=== PATIENT | male | born 1955 | race Caucasian/White ===

== ENCOUNTER 2017-01-25 07:52 | Emergency (ER) | payer OTHER ==
[~2017-01-25] VITALS: Ht 185.4 cm; Wt 122.7 kg
[~2017-01-25 07:52] MED LIST: ALBU18HF INH; ASPI325T32 PO; BECL8.7A5 INHALATION; BUTA1CAP16 PO; EPIN0.3P2 IJ; FEXO-15 PO; LEVO75TA4 PO; LIP40 PO; LISI1TAB7 PO; MONT10TA23 PO; NAPR500T PO; OLP.1OP5 OD; SUMA20SP2 NS; TOP100 PO
[2017-01-25 07:55] VITALS: BP 140/91; PULSE 55; RESP 16; O2SAT 96
--- NOTE | 2017-01-25 08:06 | ED.REPORT ---
HPI-General Illness Date of Service Jan 25, 2017 ED Provider: Dr. Ward Pt is a 61 year old male with a history of HTN, asthma, thyroid nodule, and chronic cervical myelopathy who presents to the ED complaining of headache onset yesterday at 1630. Pt c/o SOB this morning, diaphoresis this morning, bilaterally tingling in fingertips (secondary to cervical myelopathy), epigastric pain, visual changes, disorientation, nausea, and dizziness onset yesterday at 16:30. He denies chest pain, skin rashes, fever, any other abdominal pains, lower extremity edema, dysuria, or any other symptoms. The pt took Imitrex and hydrocodone (1x) with mild relief yesterday. He took Toradol as a shot at 05:30 this morning. His symptoms are similar to his previous migraines but he notes it has been years since he has had one this severe. Nursing Notes Stated Complaint: NAUSEA,SOB Chief Complaint: General Complaint Nursing Notes Reviewed: Yes Allergies: Coded Allergies: Penicillins (Verified Allergy, Severe, 07/09/15) itchy- no rash or hives ciprofloxacin (Verified Allergy, Intermediate, unk, 07/09/15) Sulfa (Sulfonamide Antibiotics) (Verified Allergy, Unknown, 07/09/15) Uncoded Allergies: MSG, Sodium nitrate, [place] (Adverse Reaction, Unknown, migraine headache, 03/30/10) Scheduled Aspirin (Aspirin) 325 Mg Tablet 325 MG PO DAILY Atorvastatin (Lipitor) 40 Mg Tablet 40 MG PO DAILY Beclomethasone Dipropionate (Qvar) 8.7 Gm Aer.w.adap 2 PUFF INHALATION BID Fexofenadine (Tami Allergy) 60 Mg Tablet 60 MG PO BID Levothyroxine (Levothyroxine) 75 Mcg Tablet 75 MCG PO DAILY Lisinopril / HCTZ 10-12.5 mg (Lisinopril / HCTZ 10-12.5 mg) 1 Each Tablet 1 EACH PO DAILY Metoprolol Succinate ER (Toprol XL) 100 Mg Tablet 100 MG PO DAILY Montelukast (Montelukast) 10 Mg Tablet 10 MG PO HS Olopatadine (Patanol) 5 Ml Soln 5 ML OD BID Scheduled PRN Albuterol Sulfate (Ventolin HFA Inhaler) 200 Puff/18 Gm Inhaler 2 PUFF INH Q4 PRN PRN For Wheezing Butalbital/Aspirin/Caff 50-325-40 mg (Fiorinal 50-325-40 mg) 1 Each Capsule 1-2 CAPSULE PO Q4H PRN PRN migraine NTE 6 capsules daily Epinephrine (Epipen 2-Alexis) 0.3 Mg/0.3 Ml Auto.injct 0.3 MG IJ PRN For Anaphyllaxis Naproxen (Naprosyn) 500 Mg Tablet 500 MG PO BIDWM PRN PRN For Pain Sumatriptan (Sumatriptan) 20 Mg [place] 20 MG NS PRN migraine NTE 40mg/daily General Time Seen by MD: 08:05 Chief Complaint Headache Hx Obtained From: Patient Arrived By: Walk-in Sudden in Onset?: No Onset Occurred: Yesterday Symptom Duration: Since onset Quality: Painful Severity: Current: Moderate Severity: Maximum: Moderate Recent Healthcare: Recent doctor visit Similar Sx Previous: Yes Past Medical History Past Medical History Heart valve insufficiency Thyroid nodle cervical mylopathy Cervical neck fusions c4-5, c5-6 Migraines Reports: Asthma, Hypertension, Denies: Diabetes mellitus Reports: Thyroid disease (isma) Past Surgical History Sinus surgery Knee arthroscopy Umbilical hernia Reports: Cataract surgery Reports: Back/neck surgery Smoking History Never Smoker Social History Alcohol Use: "Social" Drug Use: Denies drug use Ambulatory Status Independent Review of Systems + bilaterally tingling in fingertips + visual changes (non-specific) Full Review of Systems Constitutional: Denies: Fever Respiratory: Reports: Shortness of breath Cardiovascular: Denies: Chest pain GI: Reports: Abdominal pain (epigastric) Male: Denies Dysuria Skin: Reports Diaphoresis, Denies Rash, Denies Swelling Neurologic: Reports: Dizziness, Headache Complete sys rev & neg: except as marked. Physical Exam Vital Signs Vital Signs Date Time Temp Pulse Resp B/P Pulse Ox O2 Delivery O2 Flow Rate FiO2 01/25/17 10:07 57 12 109/60 98 Room Air 01/25/17 08:54 36.9 96 15 136/87 95 Room Air 01/25/17 07:55 35.9 55 16 140/91 96 Room Air Initial VS: Reviewed Head / Eyes: Atraumatic, Normocephalic Neck: Supple, Full range of motion Skin: Warm, Dry, No cyanosis Neurologic: Alert, Oriented, Nonfocal Psychiatric: Mood/affect normal, Behavior normal Respiratory / Chest: Atraumatic, Breath sounds NL, Breath sounds = bilat Cardiovascular: Heart rate NL, Regular rhythm Heart Sounds / Murmur: Positive: Systolic murmur present.. (III/, late) Abdomen: Atraumatic, Soft, No guarding, No rebound Tenderness/Guarding/Rebound: Positive: Tender LLQ..., Tender epigastric (Mild) Upper Extremities Upper Extremity / MS: Atraumatic, Full range of motion, Neurologic intact, Vascular intact Bilateral fingertips tingling secondary cervial stenosis Lower Extremity / Pelvis / MS: Atraumatic, Full range of motion, Neurologic intact, Vascular intact, No edema Interpretation & Diagnostics Lab Results Interpretation Result Diagram: 01/25/17 0825 01/25/17 0825 Test 01/25/17 08:25 White Blood Count 6.2th/mm3 (3.8-10.1) Red Blood Count 4.52mil/mm3 (4.40-5.80) Hemoglobin 14.8g/dL (13.8-17.2) Hematocrit 41.6% (41.0-50.0) Mean Corpuscular Volume 92.0fL (81-100) Mean Corpuscular Hemoglobin 32.7pg (27.0-35.0) Mean Corpuscular Hemoglobin Concent 35.6% (32.0-37.0) Red Cell Distribution Width 12.2% (12.3-15.4) Platelet Count 169bil/L (150-400) Neutrophils (%) (Auto) 63.4% (40-74) Lymphocytes (%) (Auto) 27.2% (14-46) Monocytes (%) (Auto) 7.8% (4-12) Eosinophils (%) (Auto) 1.1% (0-5) Basophils (%) (Auto) 0.3% (0-3) Sodium Level 137mEq/L (134-144) Potassium Level 3.7mEq/L (3.5-5.2) Chloride Level 99mEq/L (97-108) Carbon Dioxide Level 24mmol/L (18-29) Blood Urea Nitrogen 18mg/dL (8-27) Creatinine 0.87mg/dL (0.76-1.27) Estimat Glomerular Filtration Rate 95mL/min (>59) Glucose Level 150mg/dL (60-99) Calcium Level 9.3mg/dL (8.5-10.1) Magnesium Level 2.0mg/dL (1.6-2.6) Total Bilirubin 0.7mg/dL (0.0-1.2) Aspartate Amino Transf (AST/SGOT) 15U/L (0-50) Alanine Aminotransferase (ALT/SGPT) 20U/L (0-44) Alkaline Phosphatase 54U/L (25-160) Troponin T 0.010ug/L (0.0-0.011) Total Protein 6.8g/dL (6.4-8.4) Albumin 3.9g/dL (3.4-5.0) Hold Baptiste Top Tube Received (Received) ECG Interpretation ECG Interpretation: Sinus rhythm with a rate of 73. No ischemic Non-specific intraventricular conduction delay. Time: 08:41 Interpreted by: ED physician X-Ray Chest Interpretation Chest Xray Interpretation: IMPRESSION: Mildly reduced inspiratory volume. Dictated by: Salazar Nicole M.D. on 01/25/2017 at 9:02 View: Portable, 1 view Interpretation / Wet Read by: Interpret - Radiologist Re-Eval/Medical Decision Med Decision/Clinical Course 61-year-old man presents with migraine symptoms in addition diaphoresis dyspnea and some epigastric pain. Workup is negative for any cardiac etiology and treatment of migraine symptoms have resolved the additional complaints as well. Suggested he follow-up with his primary care provider for refill of his Fioricet and his symptoms recurred today, try another dose of Imitrex Source of Hx: Old records Time of Eval: 09:17 Patient Status: Condition improved Re-Evaluation/Progress Note: Rechecked patient. Discussed plan for discharge. Patient understands and agrees with plan. All questions addressed at this time. Counseled Regarding: Diagnosis, Lab results, Need for follow-up, When/why to return to ED Discharge & Departure Primary Impression: Migraine Migraine type: unspecified Disposition: Home Discharge Condition All VS Reviewed: Yes Condition: Stable Additional Instructions: Thank you for coming in today. Your labs and remainder of workup were very reassuring. There is no evidence of infection, heart attack, or pneumonia. Your symptoms improved with our routine migraine treatment and I am happy that you are feeling better. if your symptoms return today, I would try an additional dose of Imitrex. I hope you are able to go home and get some good sleep and wake up feeling refreshed Referrals: Everette Cook MD (PCP) Tejal Attestation Portions of this note were transcribed by Rakesh Valdivia and Odalis Melendez. I, Dr. Ward personally performed the history, physical exam and medical decision-making; I reviewed and confirmed the accuracy of the information in the transcribed note. Signed by: Rakesh Valdivia and Tejal Cardenas, 01/25/17 and 09:33 copies to: Everette Cook MD, Shawna L MD Jan 25, 2017 08:06 Odalis Ewing Jan 25, 2017 08:13 RAKESH VALDIVIA Jan 25, 2017 08:51
[2017-01-25] MEDS ORDERED: 0.9% Sodium Chloride 1,000 ML IV ONE (08:18)
[2017-01-25] MEDS ORDERED: Haloperidol 5 mg/mL Inj IVPUSH ONE (08:20)
[2017-01-25] MEDS ORDERED: Ondansetron 2 mg/mL 2 mL Inj IVPUSH ONE (08:20)
[2017-01-25 08:34] LABS: BASOPHILS % (AUTO) 0.3 % (0-3); EOSINOPHILS % (AUTO) 1.1 % (0-5); MONOCYTES % (AUTO) 7.8 % (4-12); Mean Corpuscular Hemoglobin 32.7 pg (27.0-35.0); NEUTROPHILS % (AUTO) 63.4 % (40-74); Platelet Count 169 bil/L (150-400)
[2017-01-25 08:54] VITALS: BP 136/87; PULSE 96; RESP 15; O2SAT 95
[2017-01-25 08:55] LABS: TROPONIN T 0.01 ug/L (0.0-0.011)
--- NOTE | 2017-01-25 09:04 | DRSVH ---
PROCEDURE: X-RAY CHEST ONE VIEW, PORTABLE ([id number]) INDICATIONS: chest pain, nausea TECHNIQUE: One view of the chest was acquired. COMPARISON: [facility], CR, XR CHEST 2VW, 07/25/2016, 8:33. FINDINGS: Surgical changes and devices: None. Lungs and pleura: No pleural effusions or pneumothorax. Lungs are clear. Mediastinum: Mediastinal contours appear normal. Heart size is normal. Bones and chest wall: No suspicious bony lesions. Overlying soft tissues appear unremarkable. IMPRESSION: Mildly reduced inspiratory volume. Dictated by: Salazar Nicole M.D. on 01/25/2017 at 9:02 Approved by: Salazar Nicole M.D. on 01/25/2017 at 9:02
[2017-01-25 10:07] VITALS: BP 109/60; PULSE 57; RESP 12; O2SAT 98
== END 2017-01-25 10:00 | disposition home or self-care (01) ==
LOC: SED 07:52
DX: G43.909 Migraine, unspecified, not intractable, without status migrainosus (principal); I10 Essential (primary) hypertension; Z79.82 Long term (current) use of aspirin; Z79.899 Other long term (current) drug therapy; Z88.0 Allergy status to penicillin; Z88.1 Allergy status to other antibiotic agents; Z88.2 Allergy status to sulfonamides
CPT/HCPCS: 36415; 71010; 80053; 83735; 84484; 85025; 93005; 96361; 96374; 96375; 99284; J1200; J1630; J2405; J7030

== ENCOUNTER 2017-02-06 18:24 | Emergency (ER) | payer OTHER ==
[~2017-02-06] VITALS: Ht 185.4 cm; Wt 118.2 kg
[2017-02-06 18:27] VITALS: BP 136/90; PULSE 79; RESP 17; O2SAT 96
--- NOTE | 2017-02-06 19:10 | ED.REPORT ---
HPI-Extremity Problem Lower Date of Service Feb 06, 2017 ED Provider: Aníbal Escobar MD Pt is a generally healthy 61 y/o male presenting to the ED c/o right knee pain onset 2 days ago. The patient was herding ducks and chickens 2 days ago and heard a pop in his right knee and felt some mild pain. Yesterday he began experiencing significant pain causing difficulty ambulating. Today, his pain has increased causing him trouble ambulating. Pain is exacerbated by extension of the leg. He believes the cause of his injury was a twisting movement of the knee. He denies numbness, weakness, or any other symptoms. He has no history of surgery in that knee. Nursing Notes Stated Complaint: RIGHT KNEE PAIN Chief Complaint: Extremity Trauma Nursing Notes Reviewed: Yes Allergies: Coded Allergies: Penicillins (Verified Allergy, Severe, 02/06/17) itchy- no rash or hives ciprofloxacin (Verified Allergy, Intermediate, unk, 02/06/17) Sulfa (Sulfonamide Antibiotics) (Verified Allergy, Unknown, 02/06/17) Uncoded Allergies: MSG, Sodium nitrate, [place] (Adverse Reaction, Unknown, migraine headache, 03/30/10) Scheduled Aspirin (Aspirin) 325 Mg Tablet 325 MG PO DAILY Atorvastatin (Lipitor) 40 Mg Tablet 40 MG PO DAILY Beclomethasone Dipropionate (Qvar) 8.7 Gm Aer.w.adap 2 PUFF INHALATION BID Fexofenadine (Tami Allergy) 60 Mg Tablet 60 MG PO BID Levothyroxine (Levothyroxine) 75 Mcg Tablet 75 MCG PO DAILY Lisinopril / HCTZ 10-12.5 mg (Lisinopril / HCTZ 10-12.5 mg) 1 Each Tablet 1 EACH PO DAILY Metoprolol Succinate ER (Toprol XL) 100 Mg Tablet 100 MG PO DAILY Montelukast (Montelukast) 10 Mg Tablet 10 MG PO HS Olopatadine (Patanol) 5 Ml Soln 5 ML OD BID Scheduled PRN Albuterol Sulfate (Ventolin HFA Inhaler) 200 Puff/18 Gm Inhaler 2 PUFF INH Q4 PRN PRN For Wheezing Butalbital/Aspirin/Caff 50-325-40 mg (Fiorinal 50-325-40 mg) 1 Each Capsule 1-2 CAPSULE PO Q4H PRN PRN migraine NTE 6 capsules daily Epinephrine (Epipen 2-Alexis) 0.3 Mg/0.3 Ml Auto.injct 0.3 MG IJ PRN For Anaphyllaxis Hydrocodone-Acetaminophen 5-325 mg (Hydrocodone-Acetaminophen 5-325 mg) 1 Each Tablet 1 TABLET PO Q4H PRN PRN For Pain Naproxen (Naprosyn) 500 Mg Tablet 500 MG PO BIDWM PRN PRN For Pain Sumatriptan (Sumatriptan) 20 Mg [place] 20 MG NS PRN migraine NTE 40mg/daily General Time Seen by MD: 19:09 Chief Complaint Knee injury right Hx Obtained From: Patient Arrived By: Walk-in Onset Occurred: More than a week ago... (2 weeks) Symptom Duration: Since onset Location: : Knee right Quality: Painful Severity: Current: Moderate Severity: Maximum: Moderate Exacerbated by: Range of motion, Movement Similar Sx Previous: No Past Medical History Past Medical History Mitral valve prolapse Thyroid nodle cervical mylopathy Cervical neck fusions c4-5, c5-6 Migraines Reports: Asthma, Hypertension Reports: Thyroid disease Past Surgical History Sinus surgery Knee arthroscopy Umbilical hernia Reports: Cataract surgery Reports: Back/neck surgery Smoking History Never Smoker Social History Alcohol Use: "Social" Drug Use: Denies drug use Ambulatory Status Independent Review of Systems Constitutional: Denies: Chills, Fever Musculoskeletal: Reports: Extremity pain, Denies: Extremity swelling Skin: Denies Itching, Denies Rash, Denies Swelling Neurologic: Denies: Numbness, Weakness Physical Exam Initial Vital Signs Vital Signs (First) Date Time Temp Pulse Resp B/P Pulse Ox O2 Delivery O2 Flow Rate FiO2 02/06/17 18:27 36.2 79 17 136/90 96 Room Air Initial VS: Reviewed, Vital signs normal Head / Eyes: Atraumatic, Normocephalic, PERRL ENT: Mucous membranes moist, Conjunctiva normal, No scleral icterus Neck: Supple, Full range of motion Respiratory: Breath sounds normal, Clear to auscultation, No respiratory distress Abdomen / GI: Soft, Non-tender Upper Extremities: Vascular intact, Neuro intact, No swelling Skin: Warm, Dry, No cyanosis Neurologic: Alert, Oriented, Nonfocal Psychiatric: Mood/affect normal, Behavior normal, Normal thought content Lower Extremity / Pelvis / MS: Atraumatic, No swelling, No erythema, No deformity, Neurologic intact, Vascular intact RLE: No effusion No redness, warmth, or swelling Pain with flexion and extension. Negative anterior drawer test. Tenderness about right lateral meniscus Ankle / Foot: Atraumatic, Inspection NL, Full range of motion, No swelling, No erythema, Non-tender, No deformity, Neurologic intact, Vascular intact, No ligamentous injury, Tendon function NL, No compartment syndrome General/Constitutional: Awake, Alert, No acute distress, Cooperative, Not toxic appearing Cardiovascular: Heart rate NL, Regular rhythm, Cap refill not delayed, Peripheral circulation NL Heart Sounds / Murmur: Positive: Murmur present... (I/) Interpretation & Diagnostics X-Ray Interpretation Xray Interpretation: IMPRESSION: Trace joint effusion. No fracture Mild osteoarthritis Dictated by: Dayton Adame M.D. on 02/06/2017 at 19:49 Approved by: Dayton Adame M.D. on 02/06/2017 at 19:50 Study Performed: 3 view X-Ray Ordered: Knee right Interpretation / Wet Read by: Interpret - Radiologist Re-Eval/Medical Decision Med Decision/Clinical Course Patient is a 61-year-old male who presents with right knee pain after running, twisting and experiencing a popping sensation in his knee. He reports that he previously had a similar injury to his left knee and was told that he had a meniscal injury. He is able to ambulate and weight-bear on his knee though he reports that it is uncomfortable to flex or extend his knee. On examination he has lateral meniscal tenderness. There is no instability of the knee. There is no redness, warmth or significant effusion on examination suggestive of septic arthritis. Plain films were obtained as above and demonstrated no acute fracture or dislocation. I suspect that he sustained a meniscal injury. He already has crutches at home though I have provided him with a knee immobilizer. He is advised to take nonsteroidal anti-inflammatories and elevate his knee and apply ice packs. He has already made himself an appointment with orthopedic surgery on Thursday of next week. I prescribed a limited supply of [place] for breakthrough pain. At this time, I feel that the patient is appropriate for discharge home. Prior to discharge follow-up and return precautions were reviewed in detail with the patient who verbalized understanding and agreement with the plan. The patient was discharged in stable condition. Re-Evaluation/Progress : Time of Eval: 20:15 Re-Evaluation/Progress Note: Pt rechecked. Informed pt of plan for treatment. Pt understands and agrees with plan for treatment. F/U instructions and RTER warnings given. All questions addressed. Counseled Regarding: Diagnosis, Need for follow-up, When/why to return to ED Discharge & Departure Impression: Primary Impression: Right knee injury Encounter type: initial encounter Qualified Code: S89.91XA - Unspecified injury of right lower leg, initial encounter Additional Impressions: Tear of right meniscus as current injury Encounter type: initial encounter Qualified Code: S83.206A - Unspecified tear of unspecified meniscus, current injury, right knee, initial encounter Right knee pain Chronicity: acute Qualified Code: M25.561 - Pain in right knee Osteoarthritis Osteoarthritis location: unspecified site Osteoarthritis type: unspecified Qualified Code: M19.90 - Unspecified osteoarthritis, unspecified site Disposition: Home Discharge Condition All VS Reviewed: Yes Condition: Stable Additional Instructions: Thank you for seeking care at the emergency room. It is difficult for us to make definitive diagnoses in the ED but we believe that you have a meniscus injury. The x-ray showed no signs of fracture. You do have mild osteoarthritis. Our primary goal today in the ED was to evaluate you for any life-threatening conditions. Your evaluation was reassuring. You will be discharged with a prescription for Vicodin. See the instructions below regarding this medication. Use the crutches as knee brace as tolerated. Keep your appointment with the orthopedics clinic. You should return to the ED immediately if you develop numbness or weakness of your leg, uncontrolled pain, fever, or any other concerning signs or symptoms. Thank you for letting us partake in your care today. You have been prescribed a narcotic for pain relief. These drugs are usually combined with acetaminophen (Tylenol#3, Percocet, Darvocet, Anexsia, Vicodin) or aspirin (Empirin#3, Percodan, Synalogs-DC) for increased effect. Narcotics act on the central nervous system to reduce pain; they also impair mental alertness and physical abilities. We advise you not to drink alcohol, drive a car, or operate dangerous equipment when you are taking these drugs. You can lessen stomach irritation from your medicine by taking it with meals or a full glass of water. Common side effects of narcotics are: Nausea and vomiting, heartburn, constipation, dizziness, sleepiness, and mood changes. If you have bothersome side effects or symptoms of an allergic reaction (itching, hives, rash), stop taking your medicine and call your doctor or the emergency room right away. Please keep your narcotic medicine well out of the reach of children. Referrals: Everette Cook MD (PCP) Scribe Attestation Portions of this note were transcribed by Agapito Moses. I, Dr. Escobar personally performed the history, physical exam and medical decision-making; I reviewed and confirmed the accuracy of the information in the transcribed note. Signed by Tejal Farrell, 02/06/17 - 1944 copies to: Everette Cook MD, Beck O MD Feb 06, 2017 19:10 AGAPITO MOSES Feb 06, 2017 19:33
--- NOTE | 2017-02-06 19:51 | DRSVH ---
PROCEDURE: X-RAY RIGHT KNEE, THREE VIEWS ([id number]) INDICATIONS: pain TECHNIQUE: 3 views of the knee were acquired. COMPARISON: None. FINDINGS: Bones: No fractures or dislocations. No suspicious bony lesions. Mild narrowing of the patellofemor al joint space. Scattered degenerative spurring Soft tissues: No suspicious soft tissue calcifications. Trace joint effusion IMPRESSION: Trace joint effusion. No fracture Mild osteoarthritis Dictated by: Dayton Adame M.D. on 02/06/2017 at 19:49 Approved by: Dayton Adame M.D. on 02/06/2017 at 19:50
[2017-02-06] MEDS ORDERED: HYDR-4003 PO (20:16)
[2017-02-06] MEDS ORDERED: _HYDROcodone/APAP 5-325 mg Tablet PO PRN (20:35)
[2017-02-06 20:40] VITALS: BP 130/87; PULSE 77; RESP 17; O2SAT 97
== END 2017-02-06 21:06 | disposition home or self-care (01) ==
LOC: SED 18:24
DX: S83.206A Unspecified tear of unspecified meniscus, current injury, right knee, initial encounter (principal); X50.1XXA Overexertion from prolonged static or awkward postures, initial encounter; Y93.02 Activity, running; Y92.89 Other specified places as the place of occurrence of the external cause; Y99.8 Other external cause status; M19.90 Unspecified osteoarthritis, unspecified site; I10 Essential (primary) hypertension; J45.909 Unspecified asthma, uncomplicated; E07.9 Disorder of thyroid, unspecified; G43.909 Migraine, unspecified, not intractable, without status migrainosus; Z79.82 Long term (current) use of aspirin; Z98.890 Other specified postprocedural states; Z88.0 Allergy status to penicillin; Z88.1 Allergy status to other antibiotic agents; Z88.2 Allergy status to sulfonamides

== ENCOUNTER 2017-02-17 11:50 | Day surgery (SDC) | payer OTHER ==
[2017-02-17] VITALS (10 sets, daily range): BP systolic 130–166; BP diastolic 71–90; PULSE 64–94; RESP 12–20; O2SAT 95–98
[~2017-02-17] VITALS: Ht 185.4 cm; Wt 123.3 kg
[~2017-02-17 11:50] MED LIST changes: +HYDR-4003 PO
[2017-02-17] MEDS ORDERED: Neostigmine 1 mg/mL 10 mL Inj ONE (11:51)
[2017-02-17] MEDS ORDERED: Propofol 10,000 mCg/mL 20 mL Inj ONE (11:51)
[2017-02-17] MEDS ORDERED: Ondansetron 2 mg/mL 2 mL Inj ONE (11:51)
[2017-02-17] MEDS ORDERED: MetoCLOpramide 5 mg/mL 2 mL Inj ONE (11:51)
[2017-02-17] MEDS ORDERED: fentaNYL-PF 50 mCg/mL 2 mL Inj ONE (11:51)
[2017-02-17] MEDS ORDERED: Dexamethasone 4 mg/mL Inj ONE (11:51)
[2017-02-17] MEDS ORDERED: Glycopyrrolate 0.2 MG/ML 1mL Inj ONE (11:51)
[2017-02-17] MEDS ORDERED: OMEG-86 PO (12:12)
[2017-02-17] MEDS ORDERED: CHOL10008 PO (12:12)
[2017-02-17] MEDS ORDERED: MULT-1018 PO (12:12)
[2017-02-17] MEDS: Lactated Ringer's 1,000 ML IV SCH ×2 (12:17→13:33)
[2017-02-17] MEDS ORDERED: Bupivacaine-MPF 0.5% W/EPI 30 mL Inj INJ ONE (14:07)
[2017-02-17] MEDS ORDERED: MetoCLOpramide 5 mg/mL 2 mL Inj IVPUSH PRN (14:10)
[2017-02-17] MEDS ORDERED: fentaNYL-PF 50 mCg/mL 2 mL Inj IVPUSH PRN (14:10)
[2017-02-17] MEDS ORDERED: Phenylephrine 10,000 mCg/mL Inj IVPUSH PRN (14:10)
[2017-02-17] MEDS ORDERED: Lactated Ringer's 1,000 ML IV SCH (14:10)
[2017-02-17] MEDS ORDERED: Labetalol 5 mg/mL 4 mL Inj IV PRN (14:10)
[2017-02-17] MEDS ORDERED: HYDROmorphone 1 mg/mL Inj IVPUSH PRN (14:10)
[2017-02-17] MEDS ORDERED: EPHEDrine Sulfate 50 mg/mL Inj IVPUSH PRN (14:10)
[2017-02-17] MEDS ORDERED: Atropine 0.4 mg/mL Inj IVPUSH PRN (14:10)
[2017-02-17] MEDS ORDERED: Lactated Ringer's 500 ML IV PRN (14:10)
[2017-02-17] MEDS ORDERED: Ondansetron 2 mg/mL 2 mL Inj IVPUSH PRN (14:10)
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
--- NOTE | 2017-02-17 15:14 | PCM.DISURG ---
Surgical Discharge Instruction Date of Service Feb 17, 2017 Dates of Hospitalization Date of Hospital Admission Providers Admitting Physician: Primary Care Physician: Everette Cook MD Attending Physician: Justice Ventura MD Discharge Diagnosis Discharge Diagnosis Right thyroid nodule Diet Discharge Diet: No restrictions Activity Discharge Activity-General: No restrictions, Activity as pain allows Dressing and Incisional Care Dressing Instructions: Dermabond will peel off gradually Hygiene: May shower Follow Up Plan Follow Up Plan With Dr. Ventura in surgery clinic in 2 weeks Call your provider for: Fever (over 101.5), Discharge @ incision, pus discharge Justice Ventura MD Feb 17, 2017 15:14
[2017-02-17] MEDS ORDERED: HYDROcodone-APAP 5-325 mg Tablet PO PRN (15:15)
--- NOTE | 2017-02-17 15:21 | PCM.SURGOP ---
Surgical Operative Report Date of Service: Feb 17, 2017 Pre Operative Diagnosis Right thyroid nodule Post Operative Diagnosis Same Procedure: Right thyroid lobectomy Surgeon and Cell Geneticist: Surgeon: Justice Ventura MD Assistants: Nataliia Verdugo M.D.; Yariel Pena PA-C Indication for Procedure 61-year-old man who was found to have a 3.3 cm right thyroid nodule. He was clinically euthyroid, although taking 75 g of levothyroxine. He underwent fine -needle aspiration, which showed a follicular lesion of undetermined significance, [place] III. after discussion of risks and benefits, he agreed to proceed with right thyroid lobectomy. Findings: There was no lymphadenopathy in the neck. The right thyroid nodule was soft. Procedure Details After smooth induction of general endotracheal anesthesia, he was placed in the modified beachchair position with both arms tucked, and was prepped and draped in wide sterile fashion. A procedural pause was performed according to the SCOAP checklist, and all were found to be in agreement. A transverse collar incision was made on the inferior neck. Dissection was carried down with electrocautery until the platysma muscle was divided. Subplatysmal skin flaps are raised superiorly and inferiorly. The median raphae was incised, and the right sternohyoid and sternothyroid muscles were sequentially elevated off the right thyroid lobe. Palpation of the right neck revealed a soft nodule on the inferior portion of the right thyroid lobe, but no evidence of lymphadenopathy. The right middle thyroid vein was divided with the LigaSure device. The superior pole was taken down after creating a plane between the superior pole and the cricothyroid muscle. The superior pole was taken down by sequentially dividing the branches of the right superior thyroid artery and vein with the LigaSure device. The right inferior thyroid vein was divided with the LigaSure device. The isthmus was skeletonized, and the thyroid isthmus was divided. Dissection was carried on along the capsule of the thyroid toward the ligament of Smalls. Branches of the right inferior thyroid artery were divided with the LigaSure. A tiny amount of thyroid tissue was left on the ligament of Smalls, to avoid injury to the recurrent laryngeal nerve. The nerve was probably identified, although dissection was not carried out just for the purpose of definitively identifying the nerve. Again, thyroid dissection was performed right on the capsule of the thyroid to avoid nerve injury. The thyroid was then divided from its anterior attachments to the trachea. A suture was placed on the superior pole, and it was sent for permanent pathology. Hemostasis was adequate. The strap muscles were reapproximated with interrupted 3-0 Vicryl suture. Platysma muscle was closed with interrupted 3-0 Vicryl suture. The skin incision was closed with a running 4-0 Monocryl subcuticular stitch. Dermabond was applied to the skin as a dressing. At the end the case all needle and sponge counts were correct 2. The patient was awakened from anesthesia without difficulty, and taken to the recovery room in satisfactory condition, having tolerated the procedure well. Complications There were no periprocedural complications identified. Surgical Specimen Removed: Yes Specimen sent to Pathology: Yes Surgical Specimen description: Right thyroid lobe Anesthetic Plan: GA Grafts, Implants: None Output, Estimated Blood Loss: 20 Blood Administration during devine: No Drains: None Catheters: None copies to: Rupert Ashley MD; Everette Cook MD, Joshua D MD Feb 17, 2017 15:20
--- NOTE | 2017-02-17 15:34 | PCM.ANEP1 ---
Post Anesthesia PACU Phase 1 Assessment Vital Signs Vital Signs Date Time Temp Pulse Resp B/P Pulse Ox O2 Delivery O2 Flow Rate FiO2 02/17/17 15:29 36.7 94 18 163/90 98 Simple Mask 8 02/17/17 12:29 36.1 64 16 130/85 96 Room Air Anesthetic Administered: GA Level of Alertness: Awake, talking MINER's with Equal Strength: Yes Pain: No Nausea or Vomiting: No CV Function & Hydration Stable: Yes Airway Device: N/A Oxygen Delivery: Simple Mask Lungs: Clear to Auscultation, Normal Air Movement Dermatome Level: Full Sensation PACU Phase 2 Assessment Complications: No Follow up Care: N/A Patient Instructions Provided: N/A Yefri Daily MD Feb 17, 2017 15:34
--- NOTE | 2017-02-19 14:15 | PATH ---
SURGICAL PATHOLOGY Attending Physician:Melquiades Orantes CASE STATUS: Signed Out PATIENT NAME: RESHMA ALVARADO PID: [id number] : 1955 DATE COLLECTED:02/17/2017 00:00 SPECIMEN: Thyroid, Lobectomy CLINICAL HISTORY: RIGHT THYROID NODULE 1). 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 THE NEOPLASM IS COMPLETELY EXCISED (NEGATIVE MARGINS). ICD10 D34 GROSS DESCRIPTION: The specimen is received in formalin, labeled with the patient's name, sublabeled as right thyroid lobe, and consists of a thyroid gland right lobe (12 g, 4.5 x 3.3 x 2.1 cm). A single pale black suture indicates the superior pole. The capsule is red-brown and smooth and shiny. The parenchyma is red-brown and contains a naranjo-white solid firm and partially soft well-circumscribed 3.1 by 2.2 x 1.8 cm) involving the entire lobe. The mass is 0.2 cm from the anterior and 0.4 cm with a posterior surfaces, 1.2 cm from the medial resection margin, and 0.7 cm from the superior and inferior poles. No other nodules, masses or lesions are identified. Ink code: purple-anterior; yellow-posterior; green-medial. Section code: (A) superior pole, perpendicularly sectioned, entirely submitted; (B-G) right lobe, serially sectioned and submitted SI, inside account representative; (H) inferior pole, perpendicularly sectioned, entirely submitted. 02/18/17 MICRO DESCRIPTION: See diagnosis. ICD-9 CODES: CPT CODES: 1: 89396 Electronically Signed Out Snehal Bashir MD [facility] Pathology [facility] [address], [place] [address] Technical component performed at [facility], [address] [place] [address] Ave[address], [place], [address]
== END 2017-02-17 23:59 | disposition home or self-care (01) ==
LOC: SAS 11:50
PROVIDERS: ATTEND Student in an Organized Health Care Education/Training Program
DX: D34 Benign neoplasm of thyroid gland (principal); G47.33 Obstructive sleep apnea (adult) (pediatric); J45.909 Unspecified asthma, uncomplicated; E78.5 Hyperlipidemia, unspecified; G43.909 Migraine, unspecified, not intractable, without status migrainosus; I10 Essential (primary) hypertension; Z79.51 Long term (current) use of inhaled steroids; Z79.82 Long term (current) use of aspirin
CPT/HCPCS: 60210; J1100; J1885; J2405; J2710; J2765; J3010; J7120